=== PATIENT | male | born 1985 | race African-American/Black ===

== ENCOUNTER 2021-09-10 08:07 | Emergency (ER) | payer SELFPAY ==
[~2021-09-10] VITALS: Ht 170.2 cm; Wt 63.5 kg
[2021-09-10] MEDS ORDERED: CASIRIVIMAB/IMDEVIMAB 10 ML in SODIUM CHLORIDE 0.9% 100 ML IV ONE (09:15)
[2021-09-10 09:58] VITALS: BP 136/98
== END 2021-09-10 09:59 | disposition home or self-care (01) ==
LOC: ER 08:20
DX: U07.1 COVID-19 (principal); R09.89 Other specified symptoms and signs involving the circulatory and respiratory systems; F17.210 Nicotine dependence, cigarettes, uncomplicated
CPT/HCPCS: 87400; 99282; J7050; U0002

== ENCOUNTER 2023-01-18 13:27 | Emergency (ER) | payer BC, SELFPAY ==
[~2023-01-18] VITALS: Ht 170.2 cm; Wt 63.5 kg
[2023-01-18] MEDS ORDERED: crutches (14:02)
== END 2023-01-18 14:05 | disposition home or self-care (01) ==
LOC: ER 13:38
DX: M25.562 Pain in left knee (principal)
CPT/HCPCS: 99283